=== PATIENT | male | born 1970 | race African-American/Black ===

== ENCOUNTER 2016-11-20 12:10 | Emergency (ER) | payer OTHER ==
[2016-11-20 12:16] VITALS: BP 134/89; PULSE 107; TEMP 100; BMI 30.9
[2016-11-20] MEDS ORDERED: ALBUTEROL SO4 2.5/IPRATROPIUM 0.5 INH SOL 3 ML VIAL.NEB. NEB ONE ×2 (12:38→12:42)
--- NOTE | 2016-11-20 12:44 | PDOC ---
History of Present Illness - General Chief Complaint: Cold Symptoms Stated Complaint: emplyee SOB, Time Seen by Provider: 11/20/16 12:24 History Source: Patient Exam Limitations: No Limitations - History of Present Illness Initial Comments: 11/20/16 12:38 cc WHEEZING AND CHEST CONGESION WHEN ASTHMA TRIGGERED BY ALLERGIES Timing/Duration: reports: just prior to arrival Severity: reports: mild Possible Cause: Yes: no prior episodes Modifying Factors: worse with: albuterol inhaler (OUT OF MEDS FOR ASTHMA) Past History - Past Medical History Allergies/Adverse Reactions: Allergies Allergy/AdvReac Type Severity Reaction Status Date / Time No Known Allergies Allergy Verified 11/20/16 12:12 Home Medications: Ambulatory Orders Metformin HCl [Glucophage -] 500 mg PO BID 03/31/13 Metoprolol Succinate [Toprol XL -] 50 mg PO DAILY 03/31/13 Hydrochlorothiazide [Hctz -] 12.5 mg PO DAILY #20 cap 05/14/15 Oxycodone HCl [Roxicodone -] 10 mg PO Q4H PRN #30 tablet 05/14/15 Valsartan [Diovan] 320 mg PO DAILY #30 tablet 05/14/15 Naproxen 250 mg PO BID #30 tablet 05/15/16 Anemia: No Asthma: No Cancer: No Cardiac Disorders: No CVA: No COPD: No CHF: No Dementia: No Diabetes: Yes GI Disorders: No Disorders: No HTN: Yes Hypercholesterolemia: No Liver Disease: No Seizures: No Thyroid Disease: No - Family Disease History Family Disease History: Diabetes: Father - Psycho/Social/Smoking Cessation Hx Anxiety: No Suicidal Ideation: No Smoking Status: No Smoking History: Never smoked Have you smoked in the past 12 months: No Number of Cigarettes Smoked Daily: 0 Information on smoking cessation initiated: No Hx Alcohol Use: No Drug/Substance Use Hx: No Substance Use Type: None Respiratory Specific PMHX - Complaint Specific PMHX Angina: No Review of Systems - Review of Systems Constitutional: Yes: Malaise. No: Fever HEENTM: Yes: Nose Congestion. No: Throat Pain, Throat Swelling, Difficulty Swallowing Respiratory: Yes: Cough, Wheezing. No: SOB with Exertion, Stridor, Hemoptysis Cardiac (ROS): No: Symptoms Reported ABD/GI: No: Symptoms Reported, Diarrhea, Nausea, Vomiting *Physical Exam - Vital Signs Last Vital Signs Temp Pulse Resp BP Pulse Ox 100.0 F H 107 H 18 134/89 100 11/20/16 12:12 11/20/16 12:12 11/20/16 12:12 11/20/16 12:12 11/20/16 12:12 - Physical Exam General Appearance: Yes: Appropriately Dressed. No: Apparent Distress HEENT: negative: TMs Normal, Pharynx Normal, Pharyngeal Erythema, Tonsillar Exudate, Tonsillar Erythema Neck: positive: Supple, Lymphadenopathy (L). negative: Tender, Rigid, Lymphadenopathy (R) Respiratory/Chest: positive: Wheezing (SCATTERED). negative: Chest Tender, Respiratory Distress, Accessory Muscle Use, Labored Respiration, Rales, Rhonchi , Stridor Cardiovascular: positive: Regular Rhythm, Regular Rate. negative: Murmur Gastrointestinal/Abdominal: positive: Normal Bowel Sounds, Soft. 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
[2016-11-20] MEDS ORDERED: ALBUTEROL SO4 6.7 GM HFA INHALER IH ONE (13:38)
[2016-11-20] MEDS ORDERED: ALBUTEROL SO4 0.083% IH SOL 2.5 MG/3 ML VIAL.NEB. NEB ONE (13:46)
== END 2016-11-20 13:54 | disposition home or self-care (01) ==
LOC: JERFT 12:10
PROC: 3E0F7GC Introduction of Other Therapeutic Substance into Respiratory Tract, Via Natural or Artificial Opening (ICD-10-PCS; principal; 2016-11-20)
PROC: 3E0F7GC Introduction of Other Therapeutic Substance into Respiratory Tract, Via Natural or Artificial Opening (ICD-10-PCS; 2016-11-20)
DX: J20.9 Acute bronchitis, unspecified (principal); I10 Essential (primary) hypertension; E11.9 Type 2 diabetes mellitus without complications; Z79.84 Long term (current) use of oral hypoglycemic drugs
CPT/HCPCS: 99281-25

== ENCOUNTER 2017-06-12 09:55 | Observation (INO) | payer OTHER ==
[2017-06-12 10:00] VITALS: BMI 32.1
--- NOTE | 2017-06-12 10:04 | PDOC ---
History of Present Illness - General History Source: Patient Exam Limitations: No Limitations - History of Present Illness Initial Comments: 06/12/17 10:37 The patient is a 46 year old male, with a significant past medical history of HTN and DM, who presents to the emergency department with constant chest pain for about a week. The patient reports having acute onset while working of chest pain, that is localized in the center of his chest. He reports his chest pain is often made worse with heavy weight lifting. He denies any radiation of his pain. He denies his chest pain being worse while climbing stairs. He denies any associated shortness of breath, diaphoresis, dizziness. 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 He is due for a stress test but has not scheduled it yet. He reports having these chest pain intermittently every 4-5 years. He denies any recent fevers, chills, headache or dizziness. He denies any recent nausea, vomit, diarrhea or constipation. He denies any recent dysuria, frequency, urgency or hematuria. His mother of cardiac disease at age 70. I spoke with Dr. Arteaga who states pt is overdue for a stress test that we can arrange for here or in the office today. Allergies: NKA Past surgical history: None reported. Social History: Nonsmoker. 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: <Demar Ahmadi - Last Filed: 06/12/17 11:47> <Sergio Crenshaw - Last Filed: 06/12/17 21:29> - General Chief Complaint: Chest Pain Stated Complaint: CHEST PAIN Time Seen by Provider: 06/12/17 10:03 Past History <Demar Ahmadi - Last Filed: 06/12/17 11:47> - Past Medical History Anemia: No Asthma: No Cancer: No Cardiac Disorders: No CVA: No COPD: No CHF: No Dementia: No Diabetes: Yes GI Disorders: No Disorders: No HTN: Yes Hypercholesterolemia: No Liver Disease: No Seizures: No Thyroid Disease: No - Family Disease History Family Disease History: Diabetes: Father - Psycho/Social/Smoking Cessation Hx Anxiety: No Suicidal Ideation: No Smoking Status: No Smoking History: Current some day smoker Have you smoked in the past 12 months: No Number of Cigarettes Smoked Daily: 3 Information on smoking cessation initiated: No Hx Alcohol Use: No Drug/Substance Use Hx: No Substance Use Type: None <Bahman Crenshawcoltabiel - Last Filed: 06/12/17 21:29> - Past Medical History Allergies/Adverse Reactions: Allergies Allergy/AdvReac Type Severity Reaction Status Date / Time No Known Allergies Allergy Verified 06/12/17 09:59 Home Medications: Ambulatory Orders Metformin HCl [Glucophage -] 500 mg PO DAILY 03/31/13 Hydrochlorothiazide [Hctz -] 12.5 mg PO DAILY #20 cap 05/14/15 Valsartan [Diovan] 320 mg PO DAILY #30 tablet 05/14/15 Bupropion HCl [Bupropion Xl] 300 mg PO DAILY 06/12/17 Gabapentin [Neurontin -] 300 mg PO DAILY 06/12/17 Pramipexole Di-HCl [Mirapex] 0.5 tab PO ACBK 06/12/17 Pramipexole Di-HCl [Mirapex] 0.75 mg PO ACDIN 06/12/17 Review of Systems - Review of Systems Able to Perform ROS?: Yes Comments:: 06/12/17 10:37 GENERAL/CONSTITUTIONAL: No fever or chills. No weakness. HEAD, EYES, EARS, NOSE AND THROAT: No change in vision. No ear pain or discharge. No sore throat. CARDIOVASCULAR: +chest pain. No shortness of breath. RESPIRATORY: No cough, wheezing, or hemoptysis. GASTROINTESTINAL: No nausea, vomiting, diarrhea or constipation. GENITOURINARY: No dysuria, frequency, or change in urination. MUSCULOSKELETAL: No joint or muscle swelling or pain. No neck or back pain. SKIN: No rash NEUROLOGIC: No headache, vertigo, loss of consciousness, or change in strength/ sensation. ENDOCRINE: No increased thirst. No abnormal weight change. HEMATOLOGIC/LYMPHATIC: No anemia, easy bleeding, or history of blood clots. ALLERGIC/IMMUNOLOGIC: No hives or skin allergy. <Demar Ahmadi - Last Filed: 06/12/17 11:47> *Physical Exam - Vital Signs Last Vital Signs Temp Pulse Resp BP Pulse Ox 98.2 F 94 H 20 172/108 100 06/12/17 09:56 06/12/17 09:56 06/12/17 09:56 06/12/17 09:56 06/12/17 10:10 - Physical Exam Comments: 06/12/17 10:37 GENERAL: Awake, alert, and fully oriented, in no acute distress HEAD: No signs of trauma EYES: PERRLA, EOMI, sclera anicteric, conjunctiva clear ENT: Auricles normal inspection, hearing grossly normal, nares patent, oropharynx clear without exudates. Moist mucosa NECK: Normal ROM, supple, no lymphadenopathy, JVD, or masses LUNGS: Breath sounds equal, clear to auscultation bilaterally. No wheezes, and no crackles HEART: Regular rate and rhythm, normal S1 and S2, no murmurs, rubs or gallops ABDOMEN: Not remarkable. Soft, nontender, normoactive bowel sounds. No guarding , no rebound. No masses EXTREMITIES: Normal range of motion, no edema. No clubbing or cyanosis. No cords , erythema, or tenderness NEUROLOGICAL: Normal speech, cranial nerves intact, negative pronator drift, 5/ 5 strength in all 4 extremities, normal sensation to light touch in all 4 extremities, normal cerebellar exam, normal gait, normal reflexes and tone SKIN: Warm, Dry, normal turgor, no rashes or lesions noted. <Demar Ahmadi - Last Filed: 06/12/17 11:47> - Vital Signs Last Vital Signs Temp Pulse Resp BP Pulse Ox 98.2 F 94 H 20 172/108 100 06/12/17 09:56 06/12/17 09:56 06/12/17 09:56 06/12/17 09:56 06/12/17 09:56 <Sergio Crenshaw - Last Filed: 06/12/17 21:29> Heart Score/ECG Review - ECG Impressions Comment:: 06/12/17 11:47 EKG impression reported by : Normal sinus rhythm of 87 bpm normal axis. Normal interval. No ST elevation, but has T wave inversion at 3 and AFV. <Demar Ahmadi - Last Filed: 06/12/17 11:47> - History History: Slightly suspicious - Electrocardiogram EKG: Non specific repolarization disturbance - Age Age: 45-65 - Risk Factors Risk Factors Heart Score: Yes Hx Hypertension, Yes Hx Diabetes, Yes Positive family hx of cardiac disease Based on the list above the patient has:: >/=3 risk factors or Hx atherosclerotic disease - Troponin Troponin: </= normal limit - Score Heart Score - Total: 4 <Sergio Crenshaw - Last Filed: 06/12/17 21:29> ED Treatment Course - LABORATORY CBC & Chemistry Diagram: 06/12/17 10:25 06/12/17 10:25 - ADDITIONAL ORDERS Additional order review: Laboratory Results 06/12/17 10:25 Sodium Cancelled Potassium Cancelled Chloride Cancelled Carbon Dioxide Cancelled Anion Gap Cancelled BUN Cancelled Creatinine Cancelled Creat Clearance w eGFR Cancelled Random Glucose Cancelled Calcium Cancelled Total Bilirubin Cancelled AST Cancelled ALT Cancelled Alkaline Phosphatase Cancelled Troponin I Cancelled Total Protein Cancelled Albumin Cancelled 06/12/17 10:25 RBC 4.07 MCV 90.6 MCHC 33.0 RDW 14.2 MPV 7.8 Neutrophils % 54.0 Lymphocytes % 33.7 Monocytes % 11.0 H Eosinophils % 0.8 Basophils % 0.5 <Demar Ahmadi - Last Filed: 06/12/17 11:47> - LABORATORY CBC & Chemistry Diagram: 06/12/17 10:25 06/12/17 10:25 <Sergio Crenshaw - Last Filed: 06/12/17 21:29> Medical Decision Making - Medical Decision Making 06/12/17 11:44 46yo M hx HTN, DM p/w CP for 1 week. Pt HTN on presentation despite taking home meds this morning. Exam unremarkable. EKG with no STEMI. Pt is overdue to stress test, HS is 4. Concern for ACS vs MSK pain vs pneumonia. -labs -IV labetalol 10mg -monitor -call Dr. Arteaga 06/12/17 15:28 Trop neg x2, good BP response to labetalol. Spoke with Dr. Arteaga who recommends admission for further cardiac testing given risk factors, hospitalist paged for admission awaiting call back. 06/12/17 15:[address] Robb for further evaluation and management <Sergio Crenshaw - Last Filed: 06/12/17 21:29> *DC/Admit/Observation/Transfer - Attestations Scribe Attestion: 06/12/17 10:37 Documentation prepared by Demar Ahmadi, acting as medical sales associate for Sergio Crenshaw MD. <Demar Ahmadi - Last Filed: 06/12/17 11:47> - Discharge Dispostion Admit: Yes - Attestations Physician Attestion: 06/12/17 15:42 I, Dr. Sergio Crenshaw MD, attest that this document has been prepared under my direction and personally reviewed by me in its entirety. I further attest, that it accurately reflects all work, treatment, procedures and medical decision -making performed by me. <Sergio Crenshaw - Last Filed: 06/12/17 21:29> Diagnosis at time of Disposition: Chest pain Qualifiers: Chest pain type: unspecified Qualified Code(s): R07.9 - Chest pain, unspecified - Discharge Dispostion Condition at time of disposition: Stable - Referrals
[2017-06-12 10:34] LABS: BASOPHIL 0.5 % (0-2.0); EOSINOPHIL 0.8 % (0-4.5); MCH 29.9 pg (25.7-33.7); MEAN CELL VOLUME 90.6 fl (80-96); MEAN PLT VOLUME 7.8 fl (7.5-11.1); PLATELET COUNT 205 K/MM3 (134-434); RDW 14.2 % (11.9-15.9); WHITE BLOOD COUNT 5.1 K/mm3 (4.0-10.0)
--- NOTE | 2017-06-12 10:45 | EKG ---
Test Reason : Blood Pressure : / mmHG Vent. Rate : 087 BPM Atrial Rate : 087 BPM P-R Int : 156 ms QRS Dur : 104 ms QT Int : 360 ms P-R-T Axes : 065 003 030 degrees QTc Int : 433 ms NORMAL SINUS RHYTHM MINIMAL VOLTAGE CRITERIA FOR LVH, MAY BE NORMAL VARIANT BORDERLINE ECG WHEN COMPARED WITH ECG OF 14-MAY-2016 23:34, NO SIGNIFICANT CHANGE WAS FOUND Confirmed by MITCH DESOUZA, GAETANO ([id number]) on 06/12/2017 10:44:36 AM Referred By: Confirmed By:GAETANO MEYER MD
[2017-06-12 10:58] LABS: ALBUMIN 3.7 g/dl (3.4-5.0); ANION GAP 6 (8-16); CO2 28 mmol/L (21-32); GLUCOSE,RANDOM 223 mg/dL (74-106)
[2017-06-12 11:01] LABS: SGOT/AST 38 U/L (15-37); SGPT/ALT 69 U/L (12-78)
[2017-06-12 11:05] LABS: ALK PHOS 67 U/L (45-117); BILIRUBIN,TOTAL 0.4 mg/dL (0.2-1.0); TOT PROT 7.1 g/dl (6.4-8.2); TROPONIN I < 0.02 ng/ml (0.00-0.05)
[2017-06-12] MEDS ORDERED: LABETALOL HCL 5 MG/1 ML (100MG/20 ML VIAL) IVPUSH ONE (11:40)
[2017-06-12] MEDS ORDERED: LABETALOL HCL 5 MG/1 ML (200MG/40ML VIAL) IVPB ONE (11:43)
[2017-06-12 15:18] LABS: CPK 801 IU/L (39-308); TROPONIN I < 0.02 ng/ml (0.00-0.05)
[2017-06-12] MEDS ORDERED: ASPIRIN 325 MG TABLET PO ONE (15:27)
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
[2017-06-12] MEDS ORDERED: ONDANSETRON 4 MG/2 ML VIAL IVPB PRN (16:12)
[2017-06-12] MEDS ORDERED: ASPIRIN 81 MG CHEWABLE TABLETS ONE (16:17)
[2017-06-12] MEDS ORDERED: PRAMIPEXOLE DIHYDROCHLORIDE 0.25 MG TABLET PO SCH (16:30)
[2017-06-12] MEDS: ACETAMINOPHEN 325 MG TABLET (FP) PO PRN (21:15)
--- NOTE | 2017-06-12 22:08 | CON.CARD ---
Consult - History of Present Illness History of Present Illness: The patient is a 46 year old male, with a significant past medical history of HTN and DM, who presents to the emergency department with constant chest pain for about a week. The patient reports having acute onset while working of chest pain, that is localized in the center of his chest. He reports his chest pain is often made worse with heavy weight lifting. He denies any radiation of his pain. He denies his chest pain being worse while climbing stairs. He denies any associated shortness of breath, diaphoresis, dizziness. He reports last seeing his pit clerk about 2 months ago, with most of his workup becoming negative. He is due for a stress test but has not scheduled it yet. He reports having these chest pain intermittently every 4-5 years. He denies any recent fevers, chills, headache or dizziness. He denies any recent nausea, vomit, diarrhea or constipation. He denies any recent dysuria, frequency, urgency or hematuria. His mother of cardiac disease at age 70. 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 [employer] History of Recent Travel: No Home Medications - Allergies Allergies/Adverse Reactions: Allergies Allergy/AdvReac Type Severity Reaction Status Date / Time No Known Allergies Allergy Verified 06/12/17 09:59 - Home Medications Home Medications: Ambulatory Orders Metformin HCl [Glucophage -] 500 mg PO DAILY 03/31/13 Valsartan [Diovan] 320 mg PO DAILY #30 tablet 05/14/15 Bupropion HCl [Bupropion Xl] 300 mg PO DAILY 06/12/17 Gabapentin [Neurontin -] 300 mg PO DAILY 06/12/17 Pramipexole Di-HCl [Mirapex] 0.5 tab PO ACBK 06/12/17 Pramipexole Di-HCl [Mirapex] 0.75 mg PO ACDIN 06/12/17 Amlodipine Besylate [Norvasc -] 5 mg PO DAILY #30 tablet 06/13/17 Atorvastatin Ca [Lipitor] 80 mg PO HS #30 tab 06/13/17 Hydrochlorothiazide [Hctz -] 25 mg PO DAILY #30 tablet 06/13/17 Family Disease History - Family Disease History Family Disease History: Diabetes: Grandparent (HTN), Father (HTN), Mother (HTN) , Brother (HTN), Heart Disease: Grandparent, Father, Mother, Brother Review of Systems - Review of Systems Constitutional: reports: No Symptoms Eyes: reports: No Symptoms HENT: reports: No Symptoms Neck: reports: No Symptoms Cardiovascular: reports: Chest Pain Gastrointestinal: reports: No Symptoms Genitourinary: reports: No Symptoms Breasts: reports: No Symptoms Reported Musculoskeletal: reports: No Symptoms Integumentary: reports: No Symptoms Neurological: reports: No Symptoms Endocrine: reports: No Symptoms Hematology/Lymphatic: reports: No Symptoms Psychiatric: reports: No Symptoms Vital Signs: Vital Signs Temperature 98.0 F 06/12/17 20:00 Pulse Rate 80 06/12/17 20:00 Respiratory Rate 20 06/12/17 20:00 Blood Pressure 164/110 06/12/17 20:00 O2 Sat by Pulse Oximetry (%) 100 06/12/17 20:00 Constitutional: Yes: Well Nourished, No Distress, Calm Eyes: Yes: WNL, Conjunctiva Clear, EOM Intact HENT: Yes: WNL, Atraumatic, Normocephalic Neck: Yes: WNL, Supple, Trachea Midline Respiratory: Yes: WNL, Regular, CTA Bilaterally Gastrointestinal: Yes: WNL, Normal Bowel Sounds Renal/: Yes: WNL Cardiovascular: Yes: WNL, Regular Rate and Rhythm Musculoskeletal: Yes: WNL Extremities: Yes: WNL Integumentary: Yes: WNL Neurological: Yes: WNL, Alert, Oriented ...Motor Strength: WNL Psychiatric: Yes: WNL, Alert, Oriented - Other Data Labs, Other Data: Laboratory Tests 06/12/17 06/12/17 06/12/17 10:25 10:25 10:25 WBC 5.1 RBC 4.07 Hgb 12.2 Hct 36.8 MCV 90.6 MCH 29.9 MCHC 33.0 RDW 14.2 Plt Count 205 MPV 7.8 Neutrophils % 54.0 Lymphocytes % 33.7 Monocytes % 11.0 H Eosinophils % 0.8 Basophils % 0.5 Sodium 136 Cancelled Potassium 4.5 Cancelled Chloride 102 Cancelled Carbon Dioxide 28 Cancelled Anion Gap 6 L Cancelled BUN 11 D Cancelled Creatinine 1.0 Cancelled Creat Clearance w eGFR > 60 Cancelled Random Glucose 223 H Cancelled Calcium 9.0 Cancelled Total Bilirubin 0.4 D Cancelled AST 38 H D Cancelled ALT 69 D Cancelled Alkaline Phosphatase 67 D Cancelled Creatine Kinase Creatine Kinase Index CK-MB (CK-2) Troponin I < 0.02 Cancelled B-Natriuretic Peptide 5.69 Total Protein 7.1 Cancelled Albumin 3.7 Cancelled 06/12/17 14:38 WBC RBC Hgb Hct MCV MCH MCHC RDW Plt Count MPV Neutrophils % Lymphocytes % Monocytes % Eosinophils % Basophils % Sodium Potassium Chloride Carbon Dioxide Anion Gap BUN Creatinine Creat Clearance w eGFR Random Glucose Calcium Total Bilirubin AST ALT Alkaline Phosphatase Creatine Kinase 801 H Creatine Kinase Index 0.6 CK-MB (CK-2) 4.864 H Troponin I < 0.02 B-Natriuretic Peptide Total Protein Albumin Imaging - Results X-ray: Image Reviewed EKG: Image Reviewed (sr lvh) Problem List - Problems (1) Chest pain Code(s): R07.9 - CHEST PAIN, UNSPECIFIED Qualifiers: Chest pain type: unspecified Qualified Code(s): R07.9 - Chest pain, unspecified (2) Costochondritis, acute Code(s): M94.0 - CHONDROCOSTAL JUNCTION SYNDROME [TIETZE] (3) DVT prophylaxis Code(s): [id number] - (4) Restless leg syndrome Code(s): G25.81 - RESTLESS LEGS SYNDROME (5) HTN (hypertension) Code(s): I10 - ESSENTIAL (PRIMARY) HYPERTENSION (6) Cellulitis, abdominal wall Code(s): L03.311 - CELLULITIS OF ABDOMINAL WALL (7) Bronchitis, acute, with bronchospasm Code(s): J20.9 - ACUTE BRONCHITIS, UNSPECIFIED (8) Diabetes mellitus Code(s): E11.9 - TYPE 2 DIABETES MELLITUS WITHOUT COMPLICATIONS Qualifiers: Diabetes mellitus type: type 2 Diabetes mellitus complication status: without complication Assessment/Plan cp htn dm plan r/o mi echo asa keep ldl below 70 mibi stress test
[2017-06-12 22:29] LABS: CPK 655 IU/L (39-308); TROPONIN I < 0.02 ng/ml (0.00-0.05)
[2017-06-13] MEDS ORDERED: PT OWN MED DRAWER 7, Y5N ONE (05:48)
[2017-06-13] MEDS ORDERED: HYDROCHLOROTHIAZIDE 25 MG TABLET (FP) PO SCH ×3 (06:45→10:00)
[2017-06-13] MEDS ORDERED: VALSARTAN 160 MG TABLET (UD) PO SCH ×3 (06:45→10:00)
[2017-06-13] MEDS: ACETAMINOPHEN 325 MG TABLET (FP) PO PRN (06:59)
[2017-06-13] MEDS ORDERED: PRAMIPEXOLE DIHYDROCHLORIDE 0.5 MG TABLET PO SCH (07:00)
[2017-06-13] MEDS ORDERED: metFORMIN HCL 500 MG TABLET (FP) PO SCH (07:00)
[2017-06-13 07:29] LABS: BASOPHIL 0.3 % (0-2.0); EOSINOPHIL 1.3 % (0-4.5); MCH 29.7 pg (25.7-33.7); MCHC 32.6 g/dl (32.0-35.9); MEAN CELL VOLUME 91.3 fl (80-96); MEAN PLT VOLUME 8.2 fl (7.5-11.1); NEUTROPHILS 53.5 % (42.8-82.8); PLATELET COUNT 211 K/MM3 (134-434); RDW 14.4 % (11.9-15.9); WHITE BLOOD COUNT 4.6 K/mm3 (4.0-10.0)
[2017-06-13 08:14] LABS: ALBUMIN 3.7 g/dl (3.4-5.0); ALK PHOS 71 U/L (45-117); ANION GAP 7 (8-16); BILIRUBIN,TOTAL 0.5 mg/dL (0.2-1.0); CALCIUM 9.3 mg/dL (8.5-10.1); CHOLESTEROL 269 mg/dL (50-200); CO2 27 mmol/L (21-32); CREATININE 0.9 mg/dL (0.7-1.3); GLUCOSE,RANDOM 173 mg/dL (74-106); MAGNESIUM 2.1 mg/dL (1.8-2.4); SGOT/AST 29 U/L (15-37); SGPT/ALT 63 U/L (12-78); TOT PROT 7.2 g/dl (6.4-8.2)
--- NOTE | 2017-06-13 08:50 | PN ---
Progress Note, Physician Chief Complaint: Pt A&Ox3; occasional sharp chest pain; c/o frequent bilateral numbness of the hands and also of the chest. History of Present Illness: The patient is a 46 year old black male, with a significant past medical history of HTN hyperlipidemia, and DM, who presents to the emergency department with constant chest pain for about a week. The patient reports having acute onset while working of chest pain, that is localized in the center of his chest. He reports his chest pain is often made worse with heavy weight lifting. He denies any radiation of his pain. He denies his chest pain being worse while climbing stairs. He denies any associated shortness of breath, diaphoresis, dizziness. He reports last seeing his nuclear pharmacist about 2 months ago, with most of his workup becoming negative. He is due for a stress test but has not scheduled it yet. He reports having these chest pain intermittently every 4-5 years. He denies any recent fevers, chills, headache or dizziness. He denies any recent nausea, vomit, diarrhea or constipation. He denies any recent dysuria, frequency, urgency or hematuria. His mother of cardiac disease at age 70. I spoke with Dr. Arteaga who states pt is overdue for a stress test that we can arrange for here or in the office today. Allergies: NKA Past surgical history: None reported. Social History: Nonsmoker. 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: - Current Medication List Current Medications: Active Medications Acetaminophen (Tylenol -) 650 mg PO Q6H PRN PRN Reason: FEVER OR PAIN Last Admin: 06/13/17 06:59 Dose: 650 mg Aspirin (Asa -) 81 mg PO DAILY [facility] Bupropion HCl (Wellbutrin Xl -) 300 mg PO DAILY [facility] Enoxaparin Sodium (Lovenox -) 40 mg SQ DAILY [facility] Gabapentin (Neurontin -) 300 mg PO DAILY [facility] Hydrochlorothiazide (Hctz -) 25 mg PO DAILY [facility] Last Admin: 06/13/17 06:49 Dose: 25 mg Metformin HCl (Glucophage -) 500 mg PO ACBK [facility] Ondansetron HCl (Zofran Injection) 4 mg IVPB Q6H PRN PRN Reason: NAUSEA Pramipexole Dihydrochloride (Mirapex -) 0.75 mg PO ACDIN [facility] Pramipexole Dihydrochloride (Mirapex -) 0.5 mg PO ACBK [facility] Last Admin: 06/13/17 05:59 Dose: 0.5 mg Valsartan (Diovan -) 320 mg PO DAILY [facility] Last Admin: 06/13/17 06:49 Dose: 320 mg - Objective Vital Signs: Vital Signs Temperature 98.7 F 06/13/17 06:00 Pulse Rate 84 06/13/17 06:00 Respiratory Rate 16 06/13/17 06:00 Blood Pressure 181/99 06/13/17 06:00 O2 Sat by Pulse Oximetry (%) 100 06/12/17 23:41 Constitutional: Yes: Anxious Eyes: Yes: WNL HENT: Yes: WNL Neck: Yes: WNL Labs: CBC, BMP 06/13/17 05:35 06/13/17 05:35 Problem List - Problems (1) Chest pain Assessment/Plan: TNI < 0.02 x 2; EKG without acute STT changes. Pt has costochondritis, but also has ultiple CAD risks which are presently uncontrolled. F/u Stress MIBI; if no significant ischemia, pt can be followed as an outpatient from a cardiac perspective. Code(s): R07.9 - CHEST PAIN, UNSPECIFIED Qualifiers: Chest pain type: unspecified Qualified Code(s): R07.9 - Chest pain, unspecified (2) Costochondritis, acute Code(s): M94.0 - CHONDROCOSTAL JUNCTION SYNDROME [TIETZE] (3) HTN (hypertension) Assessment/Plan: added amlodipine for BP control. On HCTZ; f/u carefully, as pt has DM. Code(s): I10 - ESSENTIAL (PRIMARY) HYPERTENSION (4) Diabetes mellitus Code(s): E11.9 - TYPE 2 DIABETES MELLITUS WITHOUT COMPLICATIONS Qualifiers: Diabetes mellitus type: type 2 Diabetes mellitus complication status: without complication (5) Hyperlipidemia Assessment/Plan: started atorvastatin high dose. F/u TSH. Code(s): E78.5 - HYPERLIPIDEMIA, UNSPECIFIED
[2017-06-13] MEDS ORDERED: GABAPENTIN 300 MG CAPSULE (FP) PO SCH (10:00)
[2017-06-13] MEDS ORDERED: ENOXAPARIN NA (PORCINE) 40 MG/0.4 ML DISP.SYRIN SQ SCH (10:00)
[2017-06-13] MEDS ORDERED: HYDROCHLOROTHIAZIDE 12.5 MG CAPSULE (FP) PO SCH (10:00)
[2017-06-13] MEDS ORDERED: ASPIRIN 81 MG CHEWABLE TABLETS PO SCH (10:00)
[2017-06-13] MEDS: amLODIPine BESYLATE 2.5 MG TABLET (FP) PO SCH ×2 (10:11→10:12)
[2017-06-13 11:42] LABS: THYROID STIMULATING HORMONE 2.78 uIU/ml (0.358-3.74)
[2017-06-13] MEDS ORDERED: ATORVASTATIN CA 80 MG TABLET (FP) PO SCH (13:00)
[2017-06-13 14:30] VITALS: BP 155/95; PULSE 104; TEMP 98.9
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
== END 2017-06-13 17:58 | disposition home or self-care (01) ==
LOC: JER 09:55 → JERBED 15:43 → UNDOADMOB 16:09 → JERBED 16:09 → J4W 20:14
PROVIDERS: ADMIT Internal Medicine; ATTEND Nurse Practitioner Acute Care
PROC: 3E033GC Introduction of Other Therapeutic Substance into Peripheral Vein, Percutaneous Approach (ICD-10-PCS; principal; 2017-06-12)
DX: R07.9 Chest pain, unspecified (principal); I10 Essential (primary) hypertension; E11.9 Type 2 diabetes mellitus without complications; F17.210 Nicotine dependence, cigarettes, uncomplicated; Z79.84 Long term (current) use of oral hypoglycemic drugs; M54.5 Low back pain; G89.29 Other chronic pain; G25.81 Restless legs syndrome; M94.0 Chondrocostal junction syndrome [Tietze]; L03.311 Cellulitis of abdominal wall; J20.9 Acute bronchitis, unspecified; E78.5 Hyperlipidemia, unspecified
CPT/HCPCS: 36415; 71020-TC; 78452-TC; 80053; 80061; 82553; 83036; 83721; 83735; 83880; 84443; 84484; 85025; 93005; 93010; 93017; 93306-TC; 99285-25; A9502; G0378

== ENCOUNTER 2018-07-01 09:13 | Emergency (ER) | payer OTHER ==
[2018-07-01 09:37] VITALS: BP 181/115; PULSE 82; TEMP 98.5; BMI 38.7
[2018-07-01] MEDS ORDERED: ACETAMINOPHEN 500 MG TABLET (FP) PO ONE (09:55)
[2018-07-01] MEDS ORDERED: DIPHTH,PERTUSS(ACELL),TET 0.5 ML DISP.SYRIN IM ONE (09:55)
[2018-07-01] MEDS ORDERED: ACETAMINOPHEN 325 MG TABLET (FP) ONE (10:04)
--- NOTE | 2018-07-01 10:13 | PDOC ---
History of Present Illness - General Chief Complaint: Injury Stated Complaint: LACERATION Time Seen by Provider: 07/01/18 09:36 History Source: Patient Exam Limitations: No Limitations - History of Present Illness Initial Comments: 07/01/18 10:09 47-year-old male with history of hypertension diabetes presents ED with complaints of an injury to his left first toe. Patient states was at home when there was a piece of glass from of left than the microplate plate which he stepped on causing him to sustain a laceration. Patient states does not feel as if something is in the foot and is not up-to-date and tetanus. 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 Patient has full range of motion of the toe and no sensory changes to the affected area. Patient did not take his blood pressure diabetic meds this morning but states his last glucose was 156 yesterday. Timing/Duration: 1-3 hours Severity: mild Associated Symptoms: reports: denies symptoms Past History - Travel Traveled outside of the country in the last 30 days: No - Past Medical History Allergies/Adverse Reactions: Allergies Allergy/AdvReac Type Severity Reaction Status Date / Time No Known Allergies Allergy Verified 07/01/18 09:25 Home Medications: Ambulatory Orders metFORMIN HCL [Glucophage -] 500 mg PO DAILY 03/31/13 Valsartan [Diovan] 320 mg PO DAILY #30 tablet 05/14/15 Anemia: No Asthma: No Cancer: No Cardiac Disorders: No CVA: No COPD: No CHF: No Dementia: No Diabetes: Yes GI Disorders: No Disorders: No HTN: Yes Hypercholesterolemia: No Liver Disease: No Seizures: No Thyroid Disease: No - Family Disease History Family Disease History: Diabetes: Father - Immunization History Immunization Up to Date: Yes - Suicide/Smoking/Psychosocial Hx Smoking Status: No Smoking History: Never smoked Have you smoked in the past 12 months: No Number of Cigarettes Smoked Daily: 3 If you are a former smoker, when did you quit?: 2011 Information on smoking cessation initiated: No 'Breaking Loose' booklet given: 06/12/17 Hx Alcohol Use: No Drug/Substance Use Hx: No Substance Use Type: None Hx Substance Use Treatment: No Patient Lives Alone: No Lives with/in: spouse/SO Review of Systems - Review of Systems Able to Perform ROS?: Yes Constitutional: No: Symptoms Reported Musculoskeletal: No: Muscle Pain Integumentary: Yes: See HPI Neurological: No: Symptoms reported Hematologic/Lymphatic: No: Symptoms Reported *Physical Exam - Vital Signs Last Vital Signs Temp Pulse Resp BP Pulse Ox 98.5 F 82 16 181/115 H 99 07/01/18 09:25 07/01/18 09:25 07/01/18 09:25 07/01/18 09:25 07/01/18 09:25 - Physical Exam General Appearance: Yes: Nourished, Appropriately Dressed. No: Apparent Distress Integumentary: positive: Other (0.5 cm superficial filet laceration to the palmar aspect of left toe base near the web. No foreign body noted surrounding skin intact.) Neurologic: positive: Motor Strength 5/5 ( ambulatory) ED Treatment Course - RADIOLOGY Radiology Studies Ordered: Category Date Time Status TOE(S) LEFT [RAD] Stat Radiology 07/01/18 09:55 Ordered Medical Decision Making - Medical Decision Making 07/01/18 10:11 And superficial. Patient has concern for foreign body. X-ray ordered. Patient also ordered for tetanus and will have a Betadine/peroxide soak have dressing applied, and discharged home with prescription of antibiotics prophylactically. 07/01/18 10:32 X-ray shows no foreign body. Patient will be given a prescription for Bactrim. Patient recommended to take his antihypertensive medications as scheduled today *DC/Admit/Observation/Transfer Diagnosis at time of Disposition: Diabetes mellitus, Wound of foot - Discharge Dispostion Disposition: HOME Condition at time of disposition: Good - Referrals Referrals: Henrietta Garzon [Primary Care Provider] - - Patient Instructions Printed Discharge Instructions: DI for Puncture Wound Additional Instructions: Please keep area clean and dry until healed . Take antibiotics as prescribed. If he notices any redness drainage or swelling to the area please follow-up with your primary care doctor at this may be a sign of infection despite taking antibiotics. - Post Discharge Activity Forms/Work/School Notes: Back to Work
== END 2018-07-01 10:53 | disposition home or self-care (01) ==
LOC: JERFT 09:13
PROC: 3E0234Z Introduction of Serum, Toxoid and Vaccine into Muscle, Percutaneous Approach (ICD-10-PCS; principal; 2018-07-01)
DX: S91.112A Laceration without foreign body of left great toe without damage to nail, initial encounter (principal); W25.XXXA Contact with sharp glass, initial encounter; Y93.89 Activity, other specified; Y92.038 Other place in apartment as the place of occurrence of the external cause; Y99.8 Other external cause status; I10 Essential (primary) hypertension; E78.00 Pure hypercholesterolemia, unspecified; Z79.84 Long term (current) use of oral hypoglycemic drugs
CPT/HCPCS: 73660-TC-LT-FY; 90715; 99281-25

== ENCOUNTER 2018-10-02 11:22 | Emergency (ER) | payer OTHER ==
[2018-10-02 11:31] VITALS: BMI 36.3
[2018-10-02 13:16] LABS: BASO % 0.3 % (0-2.0); EOS % 0.9 % (0-4.5); HEMATOCRIT 40.8 % (35.4-49); HEMOGLOBIN 13.7 GM/dL (11.7-16.9); LYMPH % 37.3 % (8-40); MCH 29.8 pg (25.7-33.7); MCHC 33.7 g/dl (32.0-35.9); MEAN CELL VOLUME 88.6 fl (80-96); MEAN PLT VOLUME 9.5 fl (7.5-11.1); MONO % 7.3 % (3.8-10.2); NEUT % 54.2 % (42.8-82.8); PLATELET COUNT 231 K/MM3 (134-434); WHITE BLOOD COUNT 5.3 K/mm3 (4.0-10.0)
--- NOTE | 2018-10-02 14:06 | PDOC ---
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 He states he felt as if the room was spinning. He denies any visual changes. He reports a throbbing pain to his posterior neck and posterior head. Secondarily, he reports over one week of right hand tingling to his 4th and 5th digits. 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 He denies any recent fevers, chills. He denies any pain, recent nausea, vomit, diarrhea or constipation. He denies any recent dysuria, frequency, urgency or hematuria. Denies double vision. Allergies: NKDA Past surgical history: None reported. Social History: Nonsmoker. Denies EtOH use and recreational drug use. 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 Neurologist: Dr. Florentino PCP: <Laly Fournier - Last Filed: 10/02/18 14:06> <Rashel Sebastian - Last Filed: 10/02/18 17:04> - General Chief Complaint: Headache Stated Complaint: EMPLOYEE, LIGHTHEADED Time Seen by Provider: 10/02/18 11:53 Past History <Laly Fournier - Last Filed: 10/02/18 14:06> - Past Medical History Anemia: No Asthma: No Cancer: No Cardiac Disorders: No CVA: No COPD: No CHF: No Dementia: No Diabetes: Yes GI Disorders: No Disorders: No HTN: Yes Hypercholesterolemia: No Liver Disease: No Seizures: No Thyroid Disease: No - Family Disease History Family Disease History: Diabetes: Father - Immunization History Immunization Up to Date: Yes - Suicide/Smoking/Psychosocial Hx Smoking Status: No Smoking History: Never smoked Have you smoked in the past 12 months: No Number of Cigarettes Smoked Daily: 3 If you are a former smoker, when did you quit?: 2011 'Breaking Loose' booklet given: 06/12/17 Hx Alcohol Use: No Drug/Substance Use Hx: No Substance Use Type: None Hx Substance Use Treatment: No <Rashel Sebastian - Last Filed: 10/02/18 17:04> - Past Medical History Allergies/Adverse Reactions: Allergies Allergy/AdvReac Type Severity Reaction Status Date / Time No Known Allergies Allergy Verified 07/01/18 09:25 Home Medications: Ambulatory Orders metFORMIN HCL [Glucophage -] 500 mg PO DAILY 03/31/13 Valsartan [Diovan] 320 mg PO DAILY #30 tablet 05/14/15 Sulfamethoxazole/Trimethoprim [Bactrim DS -] 1 tab PO BID #14 tablet 07/01/18 Review of Systems - Review of Systems Able to Perform ROS?: Yes <Laly Fournier - Last Filed: 10/02/18 14:06> - Review of Systems Constitutional: No: Chills, Fever HEENTM: No: Recent change in vision Respiratory: No: Cough, Shortness of Breath, SOB with Exertion Cardiac (ROS): No: Chest Pain, Palpitations, Syncope ABD/GI: No: Nausea, Vomiting Neurological: Yes: Tingling (RUE ulnar distribution). No: Headache All Other Systems: Reviewed and Negative <Rashel Sebastian - Last Filed: 10/02/18 17:04> *Physical Exam - Vital Signs Last Vital Signs Temp Pulse Resp BP Pulse Ox 98.0 F 99 H 16 170/102 H 99 10/02/18 11:28 10/02/18 11:28 10/02/18 11:28 10/02/18 11:28 10/02/18 11:28 - Physical Exam Comments: 10/02/18 14:07 GENERAL: The patient is awake, alert, and fully oriented, in no acute distress. HEAD: Normal with no signs of trauma. EYES: Pupils equal, round and reactive to light, extraocular movements intact, sclera anicteric, conjunctiva clear with no pallor. ENT: Ears normal, nares patent, oropharynx clear without exudates. Moist mucous membranes. NECK: Normal range of motion, supple without lymphadenopathy, JVD, or masses. LUNGS: Breath sounds equal, clear to auscultation bilaterally. No wheeze/ crackles. HEART: Regular rate and rhythm, normal S1 and S2 without murmur or rub. ABDOMEN: Soft/nontender/nondistended. BS wnl. No guarding or rebound. No palpable masses. No hepatosplenomegaly. EXTREMITIES: Normal range of motion, no edema. No clubbing or cyanosis. No cords, erythema, or tenderness. NEUROLOGICAL: (+) decreased sensation to the ulnar distribution of right hand. Cranial nerves II through XII grossly intact. Normal speech, normal gait. PSYCH: Normal mood, normal affect. SKIN: Warm, Dry, normal turgor, no rashes or lesions noted. <Laly Fournier - Last Filed: 10/02/18 14:06> - Vital Signs Last Vital Signs Temp Pulse Resp BP Pulse Ox 98.0 F 99 H 16 170/102 H 99 10/02/18 11:28 10/02/18 11:28 10/02/18 11:28 10/02/18 11:28 10/02/18 11:28 <Rashel Sebastian - Last Filed: 10/02/18 17:04> Moderate Sedation - Procedure Monitoring Vital Signs: Procedure Monitoring Vital Signs Temperature 98.0 F 10/02/18 11:28 Pulse Rate 99 H 10/02/18 11:28 Respiratory Rate 16 10/02/18 11:28 Blood Pressure 170/102 H 10/02/18 11:28 O2 Sat by Pulse Oximetry (%) 99 10/02/18 11:28 <Laly Fournier - Last Filed: 10/02/18 14:06> - Procedure Monitoring Vital Signs: Procedure Monitoring Vital Signs Temperature 98.0 F 10/02/18 11:28 Pulse Rate 99 H 10/02/18 11:28 Respiratory Rate 16 10/02/18 11:28 Blood Pressure 170/102 H 10/02/18 11:28 O2 Sat by Pulse Oximetry (%) 99 10/02/18 11:28 <Rashel Sebastian - Last Filed: 10/02/18 17:04> Heart Score/ECG Review #1 ECG reviewed & interpreted by me at: 13:45 General ECG Interpretation: Sinus Rhythm, Normal Rate (103), Normal Intervals ( qtc 445, LVH), No acute ischemic changes <Rashel Sebastian - Last Filed: 10/02/18 17:04> ED Treatment Course - LABORATORY CBC & Chemistry Diagram: 10/02/18 11:45 10/02/18 11:45 - ADDITIONAL ORDERS Additional order review: 10/02/18 11:45 RBC 4.60 MCV 88.6 MCHC 33.7 RDW 14.0 MPV 9.5 D Neutrophils % 54.2 Lymphocytes % 37.3 Monocytes % 7.3 Eosinophils % 0.9 Basophils % 0.3 <Laly Fournier - Last Filed: 10/02/18 14:06> - LABORATORY CBC & Chemistry Diagram: 10/02/18 11:45 10/02/18 11:45 - ADDITIONAL ORDERS Additional order review: 10/02/18 11:45 RBC 4.60 MCV 88.6 MCHC 33.7 RDW 14.0 MPV 9.5 D Neutrophils % 54.2 Lymphocytes % 37.3 Monocytes % 7.3 Eosinophils % 0.9 Basophils % 0.3 <Rashel Sebastian - Last Filed: 10/02/18 17:04> Medical Decision Making - Medical Decision Making 10/02/18 14:03 47-year-old male history of hypertension 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 Denies vision change/speech change/nausea/vomiting/chest pain/difficulty breathing, currently feeling better. Over the last few days has had ulnar distribution paresthesias with some neck discomfort, has history of known cervical disc herniations. Blood pressure here slightly elevated Otherwise well-appearing and neurologically intact Heart is normal, lungs are clear 47-year-old male presents with episode of lightheadedness in the setting of elevated blood pressure, no evidence of end organ injury. EKG shows LVH without acute ischemia We'll check labs, monitor blood pressure Reassess and disposition accordingly 10/02/18 16:17 bp improved 148/90, feels better and is asx. labs wnl including negative trop, but ck-mb elevated. Will trend trop x2 then likely d/c if remains normal. 10/02/18 16:53 Patient was signed out to the oncoming ED physician to follow-up the results, reassess the patient, and dispo accordingly. <Rashel Sebastian - Last Filed: 10/02/18 17:04> *DC/Admit/Observation/Transfer - Attestations Scribe Attestion: 10/02/18 14:07 Documentation prepared by Laly Fournier, acting as medical examiner for Rashel Sebastian MD <Laly Fournier - Last Filed: 10/02/18 14:06> <Rashel Sebastian - Last Filed: 10/02/18 17:04> Diagnosis at time of Disposition: Light headedness - Discharge Dispostion Condition at time of disposition: Stable - Referrals Referrals: Henrietta Garzon [Staff Physician] - - Patient Instructions Printed Discharge Instructions: DI for High Blood Pressure Additional Instructions: Activity as tolerated. Stay hydrated. Blood tests and an EKG today showed no acute abnormalities. Your blood pressure improved without additional medications. Your symptoms may have been due to a spike in your blood pressure. Continue your medications as previously prescribed by your physician. You should follow up with your primary doctor as soon as possible regarding today's emergency department visit. Return to the emergency department for any new or concerning symptoms, particularly persistent or worsening light headedness or passing out, chest pain or shortness of breath, vision changes or focal weakness.
[2018-10-02 14:22] LABS: ALBUMIN 4.2 g/dl (3.4-5.0); ALK PHOS 102 U/L (45-117); ANION GAP 10 MMOL/L (8-16); BILIRUBIN,TOTAL 0.4 mg/dL (0.2-1); BLOOD UREA NITROGEN 12 mg/dL (7-18); CALCIUM 9.3 mg/dL (8.5-10.1); CHLORIDE 99 mmol/L (98-107); CO2 25 mmol/L (21-32); CREATININE 1.2 mg/dL (0.55-1.3); GLUCOSE,RANDOM 262 mg/dL (74-106); MAGNESIUM 2.4 mg/dL (1.8-2.4); POTASSIUM 4.5 mmol/L (3.5-5.1); SGOT/AST 44 U/L (15-37); SGPT/ALT 67 U/L (13-61); SODIUM 134 mmol/L (136-145); TOT PROT 8.1 g/dl (6.4-8.2)
--- NOTE | 2018-10-02 16:14 | EKG ---
Test Reason : Blood Pressure : / mmHG Vent. Rate : 103 BPM Atrial Rate : 103 BPM P-R Int : 140 ms QRS Dur : 094 ms QT Int : 340 ms P-R-T Axes : 055 004 038 degrees QTc Int : 445 ms POOR DATA QUALITY, INTERPRETATION MAY BE ADVERSELY AFFECTED SINUS TACHYCARDIA BIATRIAL ENLARGEMENT LEFT VENTRICULAR HYPERTROPHY ABNORMAL ECG WHEN COMPARED WITH ECG OF 14-JUN-2018 07:37, NO SIGNIFICANT CHANGE WAS FOUND Confirmed by TAYLOR DESOUZA, SONG ([id number]) on 10/02/2018 4:14:13 PM Referred By: Confirmed By:SONG VAZQUEZ MD
--- NOTE | 2018-10-02 18:00 | PDOC ---
*Physical Exam - Vital Signs Last Vital Signs Temp Pulse Resp BP Pulse Ox 98.0 F 85 20 148/90 100 10/02/18 11:28 10/02/18 14:25 10/02/18 14:25 10/02/18 14:25 10/02/18 14:25 - Physical Exam Comments: 10/02/18 17:57 Gen: aaox3, nad, walking around the ED heart: +s1s2 reg lung: cta b/l abd: soft, nt/nd +bs ext: no c/c/e ED Treatment Course - LABORATORY CBC & Chemistry Diagram: 10/02/18 11:45 10/02/18 11:45 - ADDITIONAL ORDERS Additional order review: Laboratory Results 10/02/18 10/02/18 17:05 11:45 Sodium 134 L Potassium 4.5 Chloride 99 Carbon Dioxide 25 Anion Gap 10 BUN 12 Creatinine 1.2 Creat Clearance w eGFR > 60 Random Glucose 262 H Calcium 9.3 Magnesium 2.4 Total Bilirubin 0.4 AST 44 H ALT 67 H Alkaline Phosphatase 102 Creatine Kinase 1321 H Creatine Kinase Index 0.7 CK-MB (CK-2) 9.8 H Troponin I < 0.02 < 0.02 Total Protein 8.1 Albumin 4.2 10/02/18 11:45 RBC 4.60 MCV 88.6 MCHC 33.7 RDW 14.0 MPV 9.5 D Neutrophils % 54.2 Lymphocytes % 37.3 Monocytes % 7.3 Eosinophils % 0.9 Basophils % 0.3 Medical Decision Making - Medical Decision Making 10/02/18 17:58 pt signed out from the prior attending pending repeat trop -re-eval: pt denies lightheadeness, no cp/sob -pt states feeling better -repeat trop negative -pt tolerating PO intake in the ED -pt requesting to go home -has BP meds at home -follows with Dr. Arteaga -discussed follow up with cards and with PMD -answered all questions *DC/Admit/Observation/Transfer Diagnosis at time of Disposition: Light headedness - Discharge Dispostion Disposition: HOME Condition at time of disposition: Stable Decision to Admit order: No - Referrals Referrals: Henrietta Garzon [Staff Physician] - - Patient Instructions Printed Discharge Instructions: DI for High Blood Pressure Additional Instructions: Activity as tolerated. Stay hydrated. Blood tests and an EKG today showed no acute abnormalities. Your blood pressure improved without additional medications. Your symptoms may have been due to a spike in your blood pressure. Continue your medications as previously prescribed by your physician. You should follow up with your primary doctor as soon as possible regarding today's emergency department visit. Return to the emergency department for any new or concerning symptoms, particularly persistent or worsening light headedness or passing out, chest pain or shortness of breath, vision changes or focal weakness. - Post Discharge Activity Forms/Work/School Notes: Back to Work
[2018-10-02 18:22] VITALS: BP 142/84; PULSE 79; TEMP 97.6
== END 2018-10-02 18:18 | disposition home or self-care (01) ==
LOC: JER 11:22
DX: R42 Dizziness and giddiness (principal); I10 Essential (primary) hypertension; E11.9 Type 2 diabetes mellitus without complications; G62.9 Polyneuropathy, unspecified; Z87.891 Personal history of nicotine dependence
CPT/HCPCS: 36415; 80053; 82550; 82553; 83735; 84484; 85025; 93005; 93010; 99282-25

== ENCOUNTER 2019-04-23 07:13 | Emergency (ER) | payer OTHER ==
[2019-04-23] MEDS ORDERED: IBUPROFEN 400 MG TABLET (FP) PO ONE ×2 (07:28→07:33)
[2019-04-23 07:33] VITALS: BP 140/92; PULSE 89; TEMP 98.4; BMI 35.9
--- NOTE | 2019-04-23 07:35 | PDOC ---
History of Present Illness - General Chief Complaint: Injury Stated Complaint: LEFT KNEE PAIN Time Seen by Provider: 04/23/19 07:27 History Source: Patient Exam Limitations: No Limitations - History of Present Illness Initial Comments: 04/23/19 07:31 48y M hx of dm presents with L knee pain. 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 Pt notes the pain was not sever originally, but worsened as he was going home and this morning. Pain when he walks and is limited to his lower anterior knee radiating to the lateral aspects. Denies any numbnes/tingling/fever, bleeding/wounds. No other injuries ROS Constitutional - no reported Fever, Chills, Musculskelatal - +knee pain no reported back pain, joint swelling skin - no reported bruising, erythema, rash neurological: no reported numbness, focal weakness, tingling, ataxia, hematologic: no reported easy bruising, easy bleeding Physical Exam GENERAL: The patient is awake, alert, and fully oriented, Nontoxic - in no acute distress. EXTREMITIES: Normal ROM of b/l hips/knees. No effusion or eryhema oN L knee. Mild ttp inferior aspect of patella on L knee. No ttp at fibular head or tibeal plateu. NEUROLOGICAL: No facial assymetry, Normal speech, sensation and motor in LE intact and symmetric SKIN: Warm, Dry, normal turgor, suspect contusion but with bony ttp over petall, will obtain xray to ro fx tylenol for pain 04/23/19 08:30 xray neg for fx carlos wrap placed supportive care at home pmd fu I discussed the physical exam findings, ancillary test results and final diagnoses with the patient. I answered all of the patient's questions. The patient was satisfied with the care received and felt comfortable with the discharge plan and treatment plan. The patient will call their primary care physician within 24 hours to arrange follow-up and will return to the Emergency Department with any new, persistent or worsening symptoms. Past History - Past Medical History Allergies/Adverse Reactions: Allergies Allergy/AdvReac Type Severity Reaction Status Date / Time No Known Allergies Allergy Verified 07/01/18 09:25 Home Medications: Ambulatory Orders metFORMIN HCL [Glucophage -] 500 mg PO DAILY 03/31/13 Anemia: No Asthma: No Cancer: No Cardiac Disorders: No CVA: No COPD: No CHF: No Dementia: No Diabetes: Yes GI Disorders: No Disorders: No HTN: Yes Hypercholesterolemia: No Liver Disease: No Seizures: No Thyroid Disease: No - Family Disease History Family Disease History: Diabetes: Father - Immunization History Immunization Up to Date: Yes - Suicide/Smoking/Psychosocial Hx Smoking Status: No Smoking History: Never smoked Have you smoked in the past 12 months: No Number of Cigarettes Smoked Daily: 3 If you are a former smoker, when did you quit?: 2011 Information on smoking cessation initiated: No 'Breaking Loose' booklet given: 06/12/17 Hx Alcohol Use: No Drug/Substance Use Hx: No Substance Use Type: None Hx Substance Use Treatment: No *Physical Exam - Vital Signs Last Vital Signs Temp Pulse Resp BP Pulse Ox 98.4 F 89 18 140/92 100 04/23/19 07:17 04/23/19 07:17 04/23/19 07:17 04/23/19 07:17 04/23/19 07:17 ED Treatment Course - RADIOLOGY Radiology Studies Ordered: Category Date Time Status KNEE 3 POS-RIGHT [RAD] Stat Radiology 04/23/19 07:28 Ordered *DC/Admit/Observation/Transfer Diagnosis at time of Disposition: Knee contusion Qualifiers: Encounter type: initial encounter Laterality: left Qualified Code(s): S80.02XA - Contusion of left knee, initial encounter - Discharge Dispostion Disposition: HOME Condition at time of disposition: Improved Decision to Admit order: No - Referrals Referrals: Henrietta Garzon [Staff Physician] - - Patient Instructions Printed Discharge Instructions: DI for Knee Pain Additional Instructions: Return to the emergency department immediately with ANY new, persistent or worsening symptoms. Take tylenol or motrin as needed for pain. You MUST call and follow up with your doctor in 4-5 days for further evaluation of your symptoms. Results were discussed with you. Please make sure your doctor reviews the results of your emergency evaluation. Your Emergency Department visit is not complete without a follow up with your doctor. - Post Discharge Activity Forms/Work/School Notes: Back to Work
== END 2019-04-23 08:43 | disposition home or self-care (01) ==
LOC: JER 07:13
DX: S80.02XA Contusion of left knee, initial encounter (principal); I10 Essential (primary) hypertension; W01.198A Fall on same level from slipping, tripping and stumbling with subsequent striking against other object, initial encounter; Y93.02 Activity, running; Y92.234 Operating room of hospital as the place of occurrence of the external cause; Y99.0 Civilian activity done for income or pay
CPT/HCPCS: 73562-TC-LT-FY; 99282-25

== ENCOUNTER 2020-03-24 12:20 | Emergency (ER) | payer OTHER ==
[2020-03-24 12:30] VITALS: BP 137/91; PULSE 95; TEMP 98.4; BMI 34.8
--- NOTE | 2020-03-24 12:34 | PDOC ---
Rapid Medical Evaluation Chief Complaint: Injury Time Seen by Provider: 03/24/20 12:29 Medical Evaluation: Allergies Allergy/AdvReac Type Severity Reaction Status Date / Time No Known Allergies Allergy Verified 03/24/20 12:30 Vital Signs Temp Pulse Resp BP Pulse Ox 98.4 F 95 H 18 137/91 98 03/24/20 12:27 03/24/20 12:27 03/24/20 12:27 03/24/20 12:27 03/24/20 12:27 03/24/20 12:30 I performed a brief in-person evaluation of this patient. Pt is a 49 y/o male with h/o HTN, DM who presents to the ED with complaint of R great toe pain after an OR table fell onto his R great toe about 10 minutes ago. 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 Pertinent physical exam findings: Limping, nontoxic I have ordered the following: R great toe xray Patient to proceed to ED for further evaluation. Discharge Disposition - Diagnosis Injury of right great toe - Referrals Referrals: Henrietta Garzon [Primary Care Provider] - - Patient Instructions - Post Discharge Activity
[2020-03-24] MEDS ORDERED: IBUPROFEN 600 MG TABLET (FP) PO ONE ×2 (13:08→13:11)
--- NOTE | 2020-03-24 13:20 | PDOC ---
History of Present Illness - General Chief Complaint: Injury Stated Complaint: RIGHT BIG TOE INJURY Time Seen by Provider: 03/24/20 12:29 History Source: Patient Exam Limitations: No Limitations - History of Present Illness Initial Comments: 03/24/20 13:15 49-year-old male history of hypertension and diabetes presents complaining of right toe pain. 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 Patient did not strike the ground, denies any other injuries or complaints. He did not take any pain medication. ROS: Right great toe pain PE: GENERAL: well-appearing, NAD HEAD: NCAT EYES: Pupils equal, round and reactive to light, sclera anicteric, conjunctiva clear ENT: pharynx: no erythema, no exudate, uvula midline NECK: supple CHEST: nontender RESP: clear, no w/r/r CARDIO: rrr, no m/g/r ABD: +BS, soft, nontender, non distended BACK: no midline spinal ttp, no CVAT EXTREMITIES: Minimal swelling with tenderness to palpation over dorsum of right great toe, no ecchymosis noted, positive pedal pulses, no deformity noted, no abrasions or lacerations noted NEUROLOGICAL: Normal speech, walking with slight limp SKIN: Warm, Dry Is this a multiple visit Asthma Patient?: No Past History - Medical History Allergies/Adverse Reactions: Allergies Allergy/AdvReac Type Severity Reaction Status Date / Time No Known Allergies Allergy Verified 03/24/20 12:30 Home Medications: Ambulatory Orders metFORMIN HCL [Glucophage -] 500 mg PO DAILY 03/31/13 Anemia: No Asthma: No Cancer: No Cardiac Disorders: No CVA: No COPD: No CHF: No Dementia: No Diabetes: Yes GI Disorders: No Disorders: No HTN: Yes Hypercholesterolemia: No Liver Disease: No Seizures: No Thyroid Disease: No - Immunization History Immunization Up to Date: Yes - Psycho-Social/Smoking History Smoking Status: No Smoking History: Never smoked Have you smoked in the past 12 months: No Number of Cigarettes Smoked Daily: 3 If you are a former smoker, when did you quit?: 2011 'Breaking Loose' booklet given: 06/12/17 - Substance Abuse Hx (Audit-C & DAST Scrn) How often the patient has a drink containing alcohol: Never Score: In Men: 4 or > Positive; In Women: 3 or > Positive: 0 Screen Result (Pos requires Nsg. Audit-10AR): Negative *Physical Exam - Vital Signs Last Vital Signs Temp Pulse Resp BP Pulse Ox 98.4 F 95 H 18 137/91 98 03/24/20 12:27 03/24/20 12:27 03/24/20 12:27 03/24/20 12:27 03/24/20 12:27 ED Treatment Course - Medications Given in the ED: ED Medications Discontinued Medications Generic Name Dose Route Start Last Admin Trade Name Brynn PRN Reason Stop Dose Admin Ibuprofen 600 mg 03/24/20 13:08 03/24/20 13:10 Motrin - PO 03/24/20 13:09 600 mg ONCE ONE Administration Medical Decision Making - Medical Decision Making 03/24/20 13:18 49-year-old male history of hypertension and diabetes presents complaining of right toe pain. 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 Patient did not strike the ground, denies any other injuries or complaints. He did not take any pain medication. Right toe x-ray: No acute fracture noted (read by me) P.o. ibuprofen Advised patient to rest, apply ice, elevate area Follow-up with your doctor within 1 to 2 weeks as needed Discharge - Discharge Information Problems reviewed: Yes Clinical Impression/Diagnosis: Injury of right great toe Qualifiers: Encounter type: initial encounter Qualified Code(s): S99.921A - Unspecified injury of right foot, initial encounter Condition: Stable Disposition: HOME - Admission No - Follow up/Referral Referrals: Henrietta Garzon [Primary Care Provider] - - Patient Discharge Instructions Additional Instructions: Take ibuprofen 600 mg every 6 hours as needed for pain Rest, elevate, apply ice Follow-up with your doctor within 1 to 2 weeks if needed Note for work provided - Post Discharge Activity Work/Back to School Note: Back to Work
== END 2020-03-24 13:22 | disposition home or self-care (01) ==
LOC: JERFT 12:20
DX: S99.921A Unspecified injury of right foot, initial encounter (principal); W22.8XXA Striking against or struck by other objects, initial encounter
CPT/HCPCS: 73660-TC-FY; 99283-25

== ENCOUNTER 2023-08-30 02:58 | Emergency (ER) | payer OTHER ==
[2023-08-30 03:10] VITALS: BP 152/98; PULSE 125; RESP 18; TEMP 97.9; BMI 35.4
[2023-08-30] MEDS ORDERED: LIDO 2%/EPI 1:200000 PRESRVFRE (20 ML SDVIAL) ONE (03:20)
== END 2023-08-30 04:17 | disposition home or self-care (01) ==
LOC: FER 02:58
PROC: 0HQ1XZZ Repair Face Skin, External Approach (ICD-10-PCS; principal; 2023-08-30)
DX: S01.511A Laceration without foreign body of lip, initial encounter (principal); W01.0XXA Fall on same level from slipping, tripping and stumbling without subsequent striking against object, initial encounter
CPT/HCPCS: 99283-25